=== PATIENT | female | born 1995 | race Caucasian/White ===

== ENCOUNTER 2018-12-17 21:36 | Emergency (ER) | payer OTHER ==
[~2018-12-17] VITALS: Ht 160 cm; Wt 108.9 kg
[~2018-12-17 21:36] MED LIST: IBUPROFEN800 MG PO; PNEU16DI2; PREDNISONE10 MG PO
[2018-12-17] MEDS ORDERED: SYNTHROID150 MCG (21:59)
[2018-12-18] MEDS ORDERED: LEVSIN/SL0.125 MG SL (05:43)
== END 2018-12-18 06:08 | disposition home or self-care (01) ==
LOC: ER 21:36
DX: K52.9 Noninfective gastroenteritis and colitis, unspecified (principal)